=== PATIENT | female | born 1965 | race Caucasian/White ===

== ENCOUNTER 2016-06-26 18:18 | Emergency (ER) | payer SELFPAY ==
[~2016-06-26] VITALS: Ht 167.6 cm; Wt 99.8 kg
[2016-06-26 18:44] VITALS: BP 165/82
--- NOTE | 2016-06-26 19:45 | PHYS DOC ---
Past Medical History Past Medical History: Other Additional Past Medical Histor: chronic pain lower back Past Surgical History: Hysterectomy, Other Additional Past Surgical Histo: bilateral knee surgeries Alcohol Use: None Drug Use: None Adult General Chief Complaint Chief Complaint: LOWER EXTREMITY SWELLING HPI HPI Patient is a 50 year old female who presents with right ankle pain that developed this afternoon after getting home from work. Started after her ankle felt tight, so she rotated it in the air and it popped. Has lateral ankle pain. No trauma. No numbness, tingling, weakness. Review of Systems Review of Systems Constitutional: Denies fever or chills [] Eyes: Denies change in visual acuity, redness, or eye pain [] HENT: Denies nasal congestion or sore throat [] Respiratory: Denies cough or shortness of breath [] Cardiovascular: No additional information not addressed in HPI [] GI: Denies abdominal pain, nausea, vomiting, bloody stools or diarrhea [] : Denies dysuria or hematuria [] Musculoskeletal: Denies back pain [] Integument: Denies rash or skin lesions [] Neurologic: Denies headache, focal weakness or sensory changes [] Endocrine: Denies polyuria or polydipsia [] Physical Exam Physical Exam Constitutional: Well developed, well nourished, no acute distress, non-toxic appearance. [] HENT: Normocephalic, atraumatic, bilateral external ears normal, oropharynx moist, nose normal. [] Eyes: PERRLA, EOMI. [] Neck: Normal range of motion, supple. [] Cardiovascular: Extremities warm and well-perfused [] Lungs & Thorax: Respirations even and unlabored [] Skin: Warm, dry, no erythema, no rash. [] Back: Normal range of motion. [] Extremities: RLE with no obvious deformity or discoloration; Has some tenderness to anterior ankle soft tissues with no palpable or visual abnormality ; Can flex/ex toes; Can dorsiflex/plantar flex ankle; No medial or lateral malleolar tenderness; No 5 th metatarsal base tenderness; SILT almanza/sa/sp/dp/tib distributions; good dp pulse Neurologic: Alert and oriented X 3, normal motor function, normal sensory function, no focal deficits noted. [] Psychologic: Affect normal, judgement normal, mood normal. [] Current Patient Data Vital Signs Vital Signs Date Time Temp Pulse Resp B/P Pulse Ox O2 Delivery O2 Flow Rate FiO2 06/26/16 18:44 79 22 93 Room Air Course & Med Decision Making Course & Med Decision Making Discussed she does not likely need imaging at this time. Discussed supportive care. Return precautions given. She understands and agrees with plan. Dragon Disclaimer Dragon Disclaimer This electronic medical record was generated, in whole or in part, using a voice recognition dictation system. Departure Departure Impression: Primary Impression: Acute right ankle pain Disposition: HOME, SELF-CARE Condition: STABLE Referrals: TAYLOR RICHARDSON MD (PCP) Patient Instructions: Ankle Pain Additional Instructions: Take Tylenol as needed for pain. Follow-up with your primary care doctor. Return for any concerns. Tyson GARSIA MD June 26, 2016 19:45
== END 2016-06-26 20:38 | disposition home or self-care (01) ==
LOC: ER 18:18
DX: M25.571 Pain in right ankle and joints of right foot (principal); G89.29 Other chronic pain; Z90.710 Acquired absence of both cervix and uterus
CPT/HCPCS: 99283

== ENCOUNTER 2016-09-12 17:53 | Emergency (ER) | payer BC ==
[~2016-09-12] VITALS: Ht 167.6 cm; Wt 100.2 kg
[2016-09-12 18:04] VITALS: BP 128/69
[2016-09-12] MEDS ORDERED: HYDROcodone/APAP 5/325MG 1 TAB TABLET PO ONE (18:45)
[2016-09-12] MEDS ORDERED: TRAM-48 PO (19:18)
--- NOTE | 2016-09-12 19:18 | PHYS DOC ---
Past Medical History Past Medical History: Other Additional Past Medical Histor: chronic back pain Past Surgical History: Hysterectomy Additional Past Surgical Histo: bilat knees Alcohol Use: None Drug Use: None Adult General Chief Complaint Chief Complaint: MECHANICAL FALL HPI HPI Patient is a 50 year old female with history of chronic low back pain who presents today with mild left anterior knee pain and left lateral hand pain that began today after she fell. Patient denies any loss of consciousness. Review of Systems Review of Systems Constitutional: Denies fever or chills [] Musculoskeletal: mild left anterior knee pain and left lateral hand pain Integument: Denies rash or skin lesions [] Neurologic: Denies headache, focal weakness or sensory changes [] Endocrine: Denies polyuria or polydipsia [] Current Medications Current Medications Current Medications Medications (Trade) Dose Ordered Sig/Aysha Start Time Stop Time Status Last Admin Dose Admin Acetaminophen/ Hydrocodone Bitart (Lortab 5/325) 1 tab 1X ONCE 09/12/16 18:45 09/12/16 18:46 DC 09/12/16 18:28 1 TAB Allergies Allergies Allergies Coded Allergies Type Severity Reaction Last Updated Verified No Known Drug Allergies 09/12/16 No Physical Exam Physical Exam Constitutional: Well developed, well nourished, no acute distress, non-toxic appearance. [] Skin: Warm, dry, no erythema, no rash. [] Back: No tenderness, no CVA tenderness. [] Extremities: Left hand with no obvious deformity. No bruising or ecchymosis. Slight tenderness on palpation of the left lateral fifth metacarpal. Full range of motion to the left hand and wrist. No scaphoid pain or tenderness to the left wrist. +2 left radial pulse. Adequate radial medial and ulnar sensation to the left hand. Cap refill less than 2 seconds the left fingers. Left knee with no obvious deformity. Slight tenderness on palpation of the left anterior knee. Patient able to hold the left leg straight out. Negative Praveena sign and negative Yu's sign negative anterior-posterior drawer sign to the left knee. +2 left pedal pulse. Cap refill less than 2 seconds the left lower extremity. Neurologic: Alert and oriented X 3, normal motor function, normal sensory function, no focal deficits noted. [] Psychologic: Affect normal, judgement normal, mood normal. [] Current Patient Data Vital Signs Vital Signs Date Time Temp Pulse Resp B/P (MAP) Pulse Ox O2 Delivery O2 Flow Rate FiO2 09/12/16 18:04 98.3 78 20 94 Room Air 98.3 EKG EKG [] Radiology/Procedures Radiology/Procedures [] Course & Med Decision Making Course & Med Decision Making Pertinent Labs and Imaging studies reviewed. (See chart for details) Patient is in the ED with left hand and left knee contusion after falling on them. Left knee x-rays interpreted by Dr. Broderick are negative for any acute findings. Left hand x-rays interpreted by Dr. Broderick were negative for any acute findings but noted for osteophyte. Patient we discharged with Ultram. Follow-up with orthopedic doctor in 1-2 weeks. Dragon Disclaimer Dragon Disclaimer This electronic medical record was generated, in whole or in part, using a voice recognition dictation system. Departure Departure Impression: Primary Impression: Contusion of left knee Additional Impressions: Contusion of left hand Fall from standing Disposition: 01 HOME, SELF-CARE Condition: STABLE Referrals: TAYLOR RICHARDSON MD (PCP) Follow-up with your doctor in the next 7 days AB GARAY MD follow up in the next seven days Patient Instructions: Contusion, [id number] Additional Instructions: You were seen for left hand and left knee contusion after falling on them. Ice and elevate the extremities. Follow-up with the provided orthopedic doctor in 1- 2 weeks if pain continues. Scripts Tramadol Hcl (ULTRAM) 50 Mg Tablet 1 TAB PO Q6HRS, #30 TAB Prov: TAY PULIDO APRN 09/12/16 Problem Qualifiers Primary Impression: Contusion of left knee Encounter type: initial encounter Qualified Codes: S80.02XA - Contusion of left knee, initial encounter Additional Impressions: Contusion of left hand Encounter type: initial encounter Qualified Codes: S60.222A - Contusion of left hand, initial encounter Fall from standing Encounter type: initial encounter Qualified Codes: W19.XXXA - Unspecified fall, initial encounter TAY PULIDO APRN Sep 12, 2016 19:18
--- NOTE | 2016-09-13 08:06 | RAD ---
Indication injury, pain. AP oblique and lateral views of the left knee were obtained as well as a sunrise view. Bony mineralization is normal. An acute bony finding is not seen. There is narrowing of the lateral joint space compartment. There is some patellofemoral narrowing. IMPRESSION: Degenerative change. No acute bony finding seen
--- NOTE | 2016-09-13 08:11 | RAD ---
Indication fall. Pain. AP oblique and lateral views of the left hand were obtained. No acute bony finding is seen. There are some minimal degenerative change involving the hand. IMPRESSION: No acute bony finding
== END 2016-09-12 19:24 | disposition home or self-care (01) ==
LOC: ER 17:53
DX: S80.02XA Contusion of left knee, initial encounter (principal); S60.222A Contusion of left hand, initial encounter; G89.29 Other chronic pain; W19.XXXA Unspecified fall, initial encounter; Y93.89 Activity, other specified; Y99.8 Other external cause status; Y92.89 Other specified places as the place of occurrence of the external cause
CPT/HCPCS: 73130; 73564; 99284